=== PATIENT | female | born 1990 | race Caucasian/White ===

== ENCOUNTER 2022-09-01 16:49 | Emergency (ER) | payer MEDICARE, SELFPAY ==
[2022-09-01 16:50] VITALS: BP 117/81; PULSE 103; RESP 18; TEMP 36.7; O2SAT 98; BMI 39.2
[2022-09-01 17:25] LABS: POC Glucose,Bedside 146 (70-110)
[2022-09-01 17:37] LABS: Basophils # 0.1 K/mm3 (0-0.2); Basophils % 1.2 % (0.1-2.0); Eosinophils # 0.1 K/mm3 (0.0-0.4); Eosinophils % 1.4 % (0.1-12.0); Hematocrit 37.9 % (37.0-47.0); Hemoglobin 12.6 g/dL (12.2-16.2); Lymphocytes # 1.6 K/mm3 (0.7-4.5); Lymphocytes % 29.9 % (10-50); Mean Corpuscular HGB Conc 33.3 g/dL (31.8-35.4); Mean Corpuscular Hemoglobin 31.1 pg (27.0-31.2); Mean Corpuscular Volume 93.4 fl (81-99); Mean Platelet Volume 8.6 fl (7.4-10.4); Monocytes # 0.2 K/mm3 (0.1-1.0); Monocytes % 4.3 % (1.7-9.3); Neutrophils # 3.3 K/mm3 (1.8-7.8); Neutrophils % 63.3 % (37.0-80.0); Platelet Count 242 K/mm3 (142-424); Red Blood Count 4.05 M/mm3 (4.20-5.40); Red Cell Distribution Width 13.4 % (11.5-17.5); White Blood Count 5.3 K/mm3 (4.8-10.8)
--- NOTE | 2022-09-01 17:40 | [facility].EDGENADL ---
Discharge Plan Disposition Patient Disposition: Home, Self-Care Condition: Fair Referrals Follow up/Referrals: Silviano Camp II, [Primary Care Provider] - See instructions Clinical Impressions Clinical Impression: Influenza Discharge ED Provider: Rainer Pickett General Adult HPI General Chief complaint: Recheck/Abnormal Lab/Rx Stated complaint: positive for flu, soa, sugar high, NA Time Seen by Provider: 09/01/22 17:00 History of Present Illness HPI narrative: Patient is a 31-year-old female with a past medical history of diabetes who presents with concern for DKA. She states that she was recently diagnosed with influenza and her primary care physician wanted her to come in to get checked to ensure that she was not in DKA. She says that she feels off. She does not feel like she is in DKA but feels like she might be getting that way. Denies any polyuria. She says that she just feels ill. She has cough and congestion. She does have fever and chills. Related Data Allergies Allergy/AdvReac Type Severity Reaction Status Date / Time ciprofloxacin [CIPROFLOXACIN] Allergy Unknown Unverified 10/10/17 14:15 Penicillins [PENICILLINS] Allergy Unknown Unverified 10/10/17 14:15 PFSH PFSH Social History Smoking Status: Never smoker alcohol intake: never current occupational status: other Travel in the last 8 weeks: None ROS Obtained: Yes All systems reviewed & no additional complaints except as documented A 14 point review of system was obtained and otherwise negative except per HPI Physical Exam General General appearance: alert and in no apparent distress Head Head exam: atraumatic, normocephalic and normal inspection Eye Eye exam: Present normal appearance, PERRL and EOMI ENT ENT exam: Present normal exam, normal oropharynx, mucous membranes moist, TM's normal bilaterally and normal external ear exam Neck Neck exam: Present normal inspection, full ROM and trachea midline; Absent meningismus or lymphadenopathy Chest Chest inspection: Present normal inspection and symmetric chest wall rise; Absent tenderness Respiratory Respiratory exam: Present normal lung sounds bilaterally; Absent respiratory distress Cardiovascular Cardiovascular exam: Present regular rate and normal rhythm; Absent JVD Abdominal Exam Abdominal exam: Present soft and normal bowel sounds; Absent distention, tenderness or guarding Extremities Exam Extremities exam: Present normal inspection, full ROM and normal capillary refill; Absent calf tenderness Back Exam Back exam: Present normal inspection; Absent tenderness Neurological Exam Neurological exam: Present alert and oriented X3 Psychiatric Psychiatric exam: Present normal affect and normal mood Skin Skin exam: Present warm, dry, intact and normal color Lymphatic Lymphatic Findings: no adenopathy Medical Decision Making Medical Records Medical records reviewed: Yes I reviewed the patient's medical records. Aneudy Inquiry Pt receiving controlled substance: No Vital Signs: 09/01/22 16:50 09/01/22 17:52 Temperature 98.0 F Temperature Source Oral Pulse Rate [Left Radial] 103 H Respiratory Rate 18 Blood Pressure [Right Arm] 117/81 117/81 Blood Pressure Mean [Right Arm] 93 93 Blood Pressure Source [Right Arm] Automatic Cuff Blood Pressure Position [Right Arm] Sitting 02 Sat by Pulse Oximetry 98 Oxygen Delivery Method Room Air Lab Data Lab Results 09/01/22 17:15: VBG pH 7.53 H, VBG pCO2 25.0 L, VBG pO2 190.1 H, VBG HCO3 20.5 L, VBG Total CO2 21.3 L, VBG O2 Saturation 99.1 H, VBG Base Excess -2.1 09/01/22 17:16: POC Glucose 146 H 09/01/22 17:30: WBC 5.3, RBC 4.05 L, Hgb 12.6, Hct 37.9, MCV 93.4, MCH 31.1, MCHC 33.3, RDW 13.4, Plt Count 242, MPV 8.6, Neut % (Auto) 63.3, Lymph % (Auto) 29.9, [place] % (Auto) 4.3, Eos % (Auto) 1.4, Baso % (Auto) 1.2, Neut # (Auto) 3.3, Lymph # (Auto) 1.6, [place] # (Auto) 0.2, Eos # (Auto) 0.1, Baso # (Auto) 0.1 09/01/22 17:3
[2022-09-01 17:50] LABS: Alanine Aminotransferase 28 U/L (12-78); Albumin Level 3.6 g/dl (3.5-5.0); Albumin/Globulin Ratio 1.2 (1.1-1.8); Alkaline Phosphatase 87 U/L (38-126); Anion Gap 13.7 mEq/L (5-15); Aspartate Amino Transferase 39 U/L (14-36); Bilirubin,Total 0.3 mg/dl (0.2-1.3); Blood Urea Nitrogen 14 mg/dl (7-17); Calcium 8.7 mg/dl (8.4-10.2); Carbon Dioxide 24 mmol/L (22.0-30.0); Chloride 104 mmol/L (98-107); Estimated Glomerular Filt Rate 99 ml/min (>60); GFR (African American) 120 ML/MIN (>60); Glucose 151 mg/dl (74-100); Magnesium 1.7 mg/dl (1.6-2.3); Potassium 3.7 mmoL/L (3.5-5.1); Sodium 138 mmol/L (136-145); Total Protein,Serum 6.6 g/dl (6.3-8.2)
[2022-09-01 17:52] VITALS: BP 117/81
[2022-09-01 18:00] VITALS: BP 108/68; PULSE 92; O2SAT 98
[2022-09-01 18:03] LABS: VBG Base Excess -2.1 mmol/L (-2.4-2.3); VBG HCO3 20.5 mmol/L (23-30); VBG Oxygen Saturation 99.1 % (50-70); VBG PH 7.53 mmol/L (7.31-7.41); VBG PO2 190.1 mmol/L (28-40); VBG Total CO2 21.3 mmol/L (23-27)
[2022-09-01 18:53] VITALS: BP 108/68; PULSE 92; RESP 18; TEMP 36.6; O2SAT 98
== END 2022-09-01 18:55 | disposition home or self-care (01) ==
PROVIDERS: Emergency Provider Student in an Organized Health Care Education/Training Program; PCP Student in an Organized Health Care Education/Training Program
DX: R06.02 Shortness of breath (principal); J10.1 Influenza due to other identified influenza virus with other respiratory manifestations; R50.9 Fever, unspecified; E11.9 Type 2 diabetes mellitus without complications; Z88.0 Allergy status to penicillin; Z88.1 Allergy status to other antibiotic agents; Z88.3 Allergy status to other anti-infective agents
CPT/HCPCS: 80053; 82803; 82962; 83735; 85025; 96361; 96374; 99284; J2405